=== PATIENT | male | born 1975 | race Two or more races ===

== ENCOUNTER 2017-04-20 08:49 | Emergency (ER) | payer MEDICAID ==
[~2017-04-20] VITALS: Ht 175.3 cm; Wt 77.3 kg
[2017-04-20 09:27] VITALS: BP 107/66
== END 2017-04-20 10:35 | disposition home or self-care (01) ==
LOC: ER 08:55
DX: T63.301A Toxic effect of unspecified spider venom, accidental (unintentional), initial encounter (principal); E11.9 Type 2 diabetes mellitus without complications; Y93.89 Activity, other specified; Y99.8 Other external cause status; Y92.89 Other specified places as the place of occurrence of the external cause